=== PATIENT | male | born 1985 | race Caucasian/White ===

== ENCOUNTER 2017-10-13 07:44 | Emergency (ER) | payer OTHER ==
[~2017-10-13] VITALS: Ht 190.5 cm; Wt 86.2 kg
[~2017-10-13 07:44] MED LIST: BACTRIM DS TAB1 EACH PO; NORCO 7.5-3251 EACH PO; ULTRAM 50MG TAB50 MG PO
[2017-10-13] MEDS ORDERED: NORCO 5-325 TA1 EACH PO (08:14)
[2017-10-13] MEDS ORDERED: IBUPROFEN 400400 M2 PO (08:14)
[2017-10-13 09:04] VITALS: BP 149/83
== END 2017-10-13 09:05 | disposition home or self-care (01) ==
LOC: ER 07:44
DX: S16.1XXA Strain of muscle, fascia and tendon at neck level, initial encounter (principal); S13.4XXA Sprain of ligaments of cervical spine, initial encounter; S09.90XA Unspecified injury of head, initial encounter; R07.89 Other chest pain; V89.0XXA Person injured in unspecified motor-vehicle accident, nontraffic, initial encounter; Y93.89 Activity, other specified; Y92.89 Other specified places as the place of occurrence of the external cause; Y99.8 Other external cause status